=== PATIENT | male | born 1950 | race Caucasian/White ===

== ENCOUNTER 2018-02-28 18:17 | Inpatient (IN) | payer MEDICARE, BC ==
[2018-02-28 18:48] LABS: LACTIC ACID 1.9 mMol/L (0.0-2.0)
[2018-02-28 18:54] LABS: HEMATOCRIT 39 % (39-53); HEMOGLOBIN 13.6 gm/dl (13.5-17.7); MEAN CORPUSCULAR HEMOGLOBIN 31.9 pg (27.0-32.0); MEAN CORPUSCULAR HGB CONC 34.9 gm/dl (32.0-36.0); MEAN CORPUSCULAR VOLUME 92 fL (80-100)
[2018-02-28 19:00] LABS: ALBUMIN 2.7 gm/dl (3.4-5.0); BILIRUBIN,TOTAL 0.9 mg/dl (0.2-1.0); CALCIUM 8.4 mg/dl (8.5-10.1); CREATININE 2.54 mg/dl (0.80-1.30); POTASSIUM 3.9 mMol/L (3.5-5.1); TOTAL PROTEIN 7.5 gm/dl (6.4-8.2)
[2018-02-28 19:08] LABS: CARBON DIOXIDE 23.2 mEq/L (21-32)
[2018-02-28] MEDS ORDERED: SODIUM CHLORIDE 0.9% 1000ML 1,000 ML IV ONE ×3 (19:12→22:20)
[2018-02-28 19:16] LABS: CRP INFLAMMATORY 44.26 mg/dl (0.00-0.33)
[2018-02-28] MEDS ORDERED: ONDANSETRON HCL 4 MG/2 ML SOL IV ONE (19:19)
[2018-02-28] MEDS ORDERED: ONDANSETRON HCL 4 MG/2 ML SOL ONE (19:20)
[2018-02-28 19:21] LABS: BAND NEUTROPHILS % (MANUAL) 12 %; BASOPHILS % (MANUAL) 0 % (0-3); EOSINOPHILS % (MANUAL) 0 % (0-9); LYMPHOCYTES % (MANUAL) 4 % (10-50); MONOCYTES % (MANUAL) 2 % (0-12); NEUTROPHILS % (MANUAL) 82 % (37-80); NORMAL RBCS PRESENT
[2018-02-28] MEDS ORDERED: SODIUM CHLORIDE 0.9% 50 ML 25 ML IV PRN (19:24)
[2018-02-28] MEDS ORDERED: VANCOMYCIN HCL 500 MG PDS 1,000 MG in SODIUM CHLORIDE 0.9% 250 ML 250 ML IV ONE (19:24)
[2018-02-28] MEDS ORDERED: PIPERACILLIN/TAZOBACT 3.375 GM 3.375 GM in SODIUM CHLORIDE 0.9% 100 ML 100 ML IV ONE (19:24)
[2018-02-28] MEDS ORDERED: VANCOMYCIN HYDROCHLORIDE 500 MG PDS IV ONE (19:28)
[2018-02-28] MEDS ORDERED: PIPERACILLIN/TAZOBACT 3.375 GM PDS IV ONE (19:36)
[2018-02-28 19:57] LABS: SEDIMENTATION RATE 87 mm/hr (0-15)
[2018-02-28 20:24] LABS: APPEARANCE,URINE Cloudy; BILIRUBIN,URINE NEGATIVE (NEGATIVE); COLOR,URINE Dark yellow; GLUCOSE, URINE (UA) NEGATIVE (NEGATIVE); KETONES,URINE TRACE (NEGATIVE); LEUKOCYTE ESTERASE ,URINE TRACE (NEGATIVE); NITRATE,URINE POSITIVE (NEGATIVE); OCCULT BLOOD,URINE 2+ (NEG-TRACE); PH,URINE 5.5; UROBILINOGEN,URINE 0.2 (0.2-1.0 EU)
[2018-02-28] MEDS ORDERED: HYDROMORPHONE HCL 2 MG/ML SOL IV ONE (20:41)
[2018-02-28] MEDS ORDERED: ACETAMINOPHEN 325 MG PO ONE (20:41)
[2018-02-28 20:43] LABS: EPITHELIAL CELLS NEGATIVE (SQUAMOUS); RBC,URINE 0-3 (0-3AV/HPF); WBC,URINE 15-20 (0-5AV/HPF)
[2018-02-28 20:44] LABS: BACTERIA 3+ (< 1+); CRYSTALS NEGATIVE (0-3 AVE/HPF)
[2018-02-28] MEDS ORDERED: ACETAMINOPHEN 325 MG ONE (20:44)
[2018-02-28] MEDS ORDERED: HYDROMORPHONE 1 MG/ML SYRINGE ONE (20:44)
[2018-02-28 23:23] LABS: CALCIUM 7.2 mg/dl (8.5-10.1); CREATININE 2.22 mg/dl (0.80-1.30); POTASSIUM 3.6 mMol/L (3.5-5.1)
[2018-02-28 23:24] LABS: HEMATOCRIT 33 % (39-53); HEMOGLOBIN 11.5 gm/dl (13.5-17.7); MEAN CORPUSCULAR HEMOGLOBIN 31.7 pg (27.0-32.0); MEAN CORPUSCULAR HGB CONC 34.7 gm/dl (32.0-36.0); MEAN CORPUSCULAR VOLUME 91 fL (80-100)
[2018-02-28] MEDS ORDERED: FUROSEMIDE 20mg SOL IV ONE (23:33)
[2018-02-28] MEDS ORDERED: FUROSEMIDE 20mg SOL ONE (23:35)
[2018-02-28 23:37] LABS: NEUTROPHILS % (MANUAL) 87 % (37-80)
[2018-02-28 23:38] LABS: BAND NEUTROPHILS % (MANUAL) 9 %; BASOPHILS % (MANUAL) 0 % (0-3); EOSINOPHILS % (MANUAL) 0 % (0-9); LYMPHOCYTES % (MANUAL) 2 % (10-50); MONOCYTES % (MANUAL) 2 % (0-12); NORMAL RBCS PRESENT
[2018-03-01] MEDS ORDERED: ACETAMINOPHEN 325 MG PO PRN ×2 (00:33→03:08)
[2018-03-01] MEDS ORDERED: SODIUM CHLORIDE 0.9% 50 ML 25 ML IV PRN (00:33)
[2018-03-01] MEDS ORDERED: HYDROMORPHONE 1 MG/ML SYRINGE IV PRN (00:33)
[2018-03-01] MEDS ORDERED: PIPERACILLIN/TAZOBACT 3.375 GM 3.375 GM in SODIUM CHLORIDE 0.9% 100 ML 100 ML IV SCH (01:00)
[2018-03-01] MEDS ORDERED: PIPERACILLIN/TAZOBACT 3.375 GM PDS IV ONE ×2 (02:28→07:54)
[2018-03-01] MEDS ORDERED: SODIUM CHLORIDE 0.9% 100 ML 100 ML IV ONE ×2 (02:30→07:54)
[2018-03-01] MEDS: PIPERACILLIN/TAZOBACT 3.375 GM 3.375 GM in SODIUM CHLORIDE 0.9% 100 ML 100 ML IV SCH ×2 (02:53→08:10)
[2018-03-01] MEDS ORDERED: SODIUM CHLORIDE 0.9% 1000ML 1,000 ML IV ONE (03:04)
[2018-03-01] MEDS: SODIUM CHLORIDE 0.9% FLUSH 10 ML SOL IV SCH ×3 (03:05→08:53)
[2018-03-01 06:53] VITALS: BP 115/74; PULSE 98; RESP 20; TEMP 97.9; O2SAT 92
[2018-03-01] MEDS ORDERED: SODIUM CHLORIDE 0.9% 250 ML 250 ML IV ONE (07:25)
[2018-03-01] MEDS ORDERED: VANCOMYCIN HYDROCHLORIDE 500 MG PDS IV ONE (07:25)
[2018-03-01 07:39] LABS: HEMATOCRIT 34 % (39-53); HEMOGLOBIN 11.7 gm/dl (13.5-17.7); MEAN CORPUSCULAR HEMOGLOBIN 31.8 pg (27.0-32.0); MEAN CORPUSCULAR HGB CONC 34.3 gm/dl (32.0-36.0); MEAN CORPUSCULAR VOLUME 93 fL (80-100)
[2018-03-01 07:54] LABS: CALCIUM 7.2 mg/dl (8.5-10.1); CARBON DIOXIDE 18.4 mEq/L (21-32); CREATININE 2.19 mg/dl (0.80-1.30); POTASSIUM 3.3 mMol/L (3.5-5.1)
[2018-03-01] MEDS ORDERED: VANCOMYCIN HCL 500 MG PDS 1,000 MG in SODIUM CHLORIDE 0.9% 250 ML 250 ML IV SCH (08:00)
[2018-03-01 08:08] LABS: CRP INFLAMMATORY 31.98 mg/dl (0.00-0.33)
[2018-03-01 08:14] LABS: BAND NEUTROPHILS % (MANUAL) 29 %; NEUTROPHILS % (MANUAL) 60 % (37-80)
[2018-03-01 08:15] LABS: BASOPHILS % (MANUAL) 0 % (0-3); EOSINOPHILS % (MANUAL) 0 % (0-9); LYMPHOCYTES % (MANUAL) 6 % (10-50); MONOCYTES % (MANUAL) 5 % (0-12); NORMAL RBCS PRESENT
[2018-03-01] MEDS ORDERED: ENOXAPARIN 40 MG SOL SC SCH (09:00)
[2018-03-01 09:01] LABS: INR 1.01 (0.86-1.12)
== END 2018-03-01 09:40 | disposition short-term general hospital (02) | DRG 689 ==
LOC: ED 18:17 → ACUTE CARE 03-01 00:16
PROVIDERS: ADMIT Surgery; ATTEND Surgery
DX: N39.0 Urinary tract infection, site not specified (principal); N10 Acute pyelonephritis; S37.009A Unspecified injury of unspecified kidney, initial encounter; A41.51 Sepsis due to Escherichia coli [E. coli]; E87.1 Hypo-osmolality and hyponatremia; N11.1 Chronic obstructive pyelonephritis
CPT/HCPCS: 36415; 74176; 80048; 80053; 81001; 85007; 85027; 85610; 85651; 85730; 87040; 87077; 87088; 87186; 87205; 93012; 96365; 96366; 96374; 96375; 99222; 99291; J1650; J1940; J2405; J2543; J3370; J1170

== ENCOUNTER 2018-03-28 16:13 | Emergency (ER) | payer MEDICARE, BC ==
[2018-03-28 16:28] VITALS: RESP 20; TEMP 97.5
[2018-03-28 17:30] VITALS: BP 149/72; PULSE 96; O2SAT 99
== END 2018-03-28 17:28 | disposition home or self-care (01) | DRG 700 ==
LOC: ED 16:13
DX: T83.032A Leakage of nephrostomy catheter, initial encounter (principal)
CPT/HCPCS: 99282